=== PATIENT | female | born 1995 | race Caucasian/White ===

== ENCOUNTER 2017-01-06 01:12 | Emergency (ER) | payer BC ==
[2017-01-06] MEDS ORDERED: SODIUM CHLORIDE 0.9% 1000ML 1,000 ML ONE (01:25)
[2017-01-06 01:32] VITALS: TEMP 97
[2017-01-06] MEDS: SODIUM CHLORIDE 0.9% 1000ML 1,000 ML IVS ONE (01:35)
[2017-01-06] MEDS ORDERED: BENZOCAINE 14% W/TETRACAINE 20 GM CAN TOP ONE (01:39)
[2017-01-06] MEDS: ONDANSETRON ODT 8 MG TAB SL SCH (02:18)
[2017-01-06] MEDS: ALUMINUM & MAGNESIUM HYDROXIDE 30 ML UD PO ONE (02:53)
[2017-01-06] MEDS: POTASSIUM CHLORIDE ELIXIR 20 MEQ/15 ML UD PO ONE (02:53)
--- NOTE | 2017-01-06 02:58 | ED.PDOC ---
History of Present Illness - General Chief Complaint: ENT Problem Stated Complaint: throwing up blood, had tonsillectomy Time Seen by Provider: 01/06/17 01:25 Source: patient Exam Limitations: no limitations - History of Present Illness Initial Comments: The patient is a 21-year-old female presenting to the emergency room secondary to bleeding at her tonsillectomy site on the left. The patient had a tonsillectomy performed 2 weeks ago and since that time has had 3 episodes not including this one of at least mildly bleeding. All episodes have occurred at night. Tonight the bleeding was faster and it caused her to vomit. The patient did have a syncopal episode here in the emergency room. The patient was spitting up khari blood clots. Estimated blood loss is close to 70 cc. No fevers. Timing/Duration: 1/2 hour Severity: moderate Improving Factors: nothing Worsening Factors: nothing Associated Symptoms: malaise, nausea/vomiting, weakness Review of Systems - Review of Systems Constitutional: States: malaise, weakness EENTM: States: throat pain, mouth pain Respiratory: States: no symptoms reported Cardiology: States: syncope Gastrointestinal/Abdominal: States: nausea, vomiting Genitourinary: States: no symptoms reported Musculoskeletal: States: no symptoms reported Skin: States: no symptoms reported Neurological: States: no symptoms reported Endocrine: States: no symptoms reported All other Systems: No Change from Baseline Past Medical History (General) - Patient Medical History Hx Asthma: No Hx Cardiac Disorders: No Hx Hypertension: No Hx Diabetes: No Hx Gastroesophageal Reflux: No Surgical History: tonsillectomy, other - Vaccination History Hx Tetanus, Diphtheria Vaccination: No Hx Influenza Vaccination: No Hx Pneumococcal Vaccination: No - Social History Hx Tobacco Use: No Hx Alcohol Use: No Family Medical History - Family History Mother Family History: Unknown Physical Exam - Physical Exam General Appearance: Alert, Other - pale Eye Exam: bilateral normal Ears, Nose, Throat: other - area of previous bleeding seen just posterior to the anterior tonsillar pillar on the left. No evidence of bleeding from the right tonsillar bed. 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, no motor/sensory deficits, normal mood/ affect - before and after she passed out, oriented x 3 Skin Exam: pallor Comments: Vital Signs - 24 hr 01/06/17 01:25 Temperature 97 F L Pulse Rate [ 90 left] Respiratory 22 Rate Blood Pressure 96/52 [left] O2 Sat by Pulse 97 Oximetry 109/72 Progress - Progress Progress: Laboratory Results - last 24 hr 01/06/17 01:25 WBC 13.7 H RBC 4.09 L Hgb 11.7 L Hct 35.8 L MCV 87.5 MCH 28.6 MCHC 32.6 L RDW 12.9 Plt Count 307 MPV 10.0 Absolute Neuts (auto) 8.40 H Absolute Lymphs (auto) 4.50 H Absolute Monos (auto) 0.60 Absolute Eos (auto) 0.20 Absolute Basos (auto) 0.00 Neutrophils % 61.3 Lymphocytes % 32.9 Monocytes % 4.3 Eosinophils % 1.3 Basophils % 0.2 PT 11.1 INR 0.980 PTT (SP) 30.0 Sodium 136 Potassium 2.8 L Chloride 103 Carbon Dioxide 25 Anion Gap 10.8 L BUN 14 Creatinine 0.75 BUN/Creatinine Ratio 18.7 Random Glucose 131 H Serum Osmolality 274.2 L Calcium 9.4 Total Bilirubin 0.3 AST 17 ALT 11 Alkaline Phosphatase 59 L Serum Total Protein 8.1 Albumin 4.3 Globulin 3.8 H Albumin/Globulin Ratio 1.1 01/06/17 03:01 the patient is a 21-year-old female presenting to emergency room secondary to recurrent bleeding from her left tonsillectomy site. The patient did have a syncopal episode most consistent with vasovagal syncope. she was given a liter of IV fluids bolused which did help to improve her blood pressure. Hemostasis was actually achieved with the patient drinking cold water. Mild nausea was controlled with Zofran. Maalox was given to help reduce stomach irritation from the blood. The patient was initially found to be mildly hypokalemic with a potassium of 2.8. She was given a dose of oral potassium here and needs to follow up with the primary care doctor in the very near future for a recheck of that level. the patient was monitored for several hours without evidence of significant rebleeding. She does need to use a humidifier at night. Sleeping on a slight incline may help reduce pressure to the area as well. Return to the emergency room for any significant rebleeding. Hemostasis was obtained so no chemical or electrocautery was used. Departure - Departure Clinical Impression: Hypokalemia Postoperative hemorrhage Qualifiers: Laterality: left Syncope Qualifiers: Syncope type: vasovagal syncope Qualifier Code: (R55) Syncope and collapse Disposition: Discharge to Home or Self Care Condition: Fair Departure Forms: ED Discharge - Pt. Copy, Patient Portal Self Enrollment Diet: regular diet Activity: increase activity as tolerated Additional Instructions: the patient is a 21-year-old female presenting to emergency room secondary to recurrent bleeding from her left tonsillectomy site. The patient did have a syncopal episode most consistent with vasovagal syncope. she was given a liter of IV fluids bolused which did help to improve her blood pressure. Hemostasis was actually achieved with the patient drinking cold water. Mild nausea was controlled with Zofran. Maalox was given to help reduce stomach irritation from the blood. The patient was initially found to be mildly hypokalemic with a potassium of 2.8. She was given a dose of oral potassium here and needs to follow up with the primary care doctor in the very near future for a recheck of that level. the patient was monitored for several hours without evidence of significant rebleeding. She does need to use a humidifier at night. Sleeping on a slight incline may help reduce pressure to the area as well. Return to the emergency room for any significant rebleeding. Hemostasis was obtained so no chemical or electrocautery was used.
[2017-01-06 03:03] VITALS: O2SAT 99
[2017-01-06 03:14] VITALS: BP 106/75
== END 2017-01-06 03:25 | disposition home or self-care (01) ==
LOC: ER 01:12
DX: E87.6 Hypokalemia (principal); R55 Syncope and collapse; Z98.890 Other specified postprocedural states